=== PATIENT | female | born 1980 | race African-American/Black ===

== ENCOUNTER → 2016-10-24 | Outpatient (REF) ==
[~2016-10-24] MED LIST: ANTIVERT 25MG25 MG PO; CARAFATE 1GM1 G PO; CELEXA10 MG PO; CLEOCIN HCL300 MG PO; DOXYCYCLINE 10100 MG PO; FLEXERIL 1010 MG/TAB PO; FLEXERIL5 MG PO; LORTAB 5/500 501 TAB PO; MOBIC 7.5MG7.5 MG PO; MOTRIN 800800 MG/TAB PO; NAPROSYN500 MG PO; NO HOME MEDICATIONS; NORCO 325 MG-51 TAB PO; PHENERGAN W/CO120 M1 PO; PREDNISONE20 MG PO; PRENATAL VITAMI1 TA5 PO; PRIL40 PO; PRILOSEC 20MG20 MG PO; PROAIR HFA0.09 MG/AC IH; TYLENOL 500MG500 MG PO; VALIUM 2MG T2 MG/TAB PO; ZITHROMAX Z PA250 MG PO; [UNRECOGNIZED DRUG - REMARK]
== END ==
LOC: WSOH 10:23
DX: Z02.89 Encounter for other administrative examinations (principal)

== ENCOUNTER 2017-02-01 08:21 | Emergency (ER) | payer OTHER ==
[~2017-02-01] VITALS: Ht 180.3 cm; Wt 136.4 kg
[~2017-02-01 08:21] MED LIST changes: -DOXYCYCLINE 10100 MG PO
[2017-02-01 08:26] VITALS: BP 170/65; TEMP 98
[2017-02-01] MEDS ORDERED: PREDNISONE20 MG PO (10:38)
[2017-02-01 10:58] VITALS: PULSE 82
[2017-06-07] MEDS ORDERED: DOXYCYCLINE 10100 MG PO (14:06)
== END 2017-02-01 10:58 | disposition home or self-care (01) ==
LOC: COL.ER 08:21
DX: J20.9 Acute bronchitis, unspecified (principal); Z87.891 Personal history of nicotine dependence; F32.9 Major depressive disorder, single episode, unspecified
CPT/HCPCS: J7512

== ENCOUNTER 2018-01-30 11:06 | Emergency (ER) | payer OTHER ==
[~2018-01-30] VITALS: Ht 182.9 cm; Wt 147.7 kg
[~2018-01-30 11:06] MED LIST changes: +DOXYCYCLINE 10100 MG PO
[2018-01-30 11:16] VITALS: BP 149/94; PULSE 82; TEMP 98.7
== END 2018-01-30 11:52 | disposition left against medical advice (07) ==
LOC: COL.ER 11:06
DX: R03.0 Elevated blood-pressure reading, without diagnosis of hypertension (principal)

== ENCOUNTER 2018-02-20 07:51 | Emergency (ER) | payer OTHER ==
[~2018-02-20] VITALS: Ht 182.9 cm; Wt 154.7 kg
[2018-02-20] MEDS ORDERED: NORCO 325 MG-7.1 TAB PO (08:26)
[2018-02-20] MEDS ORDERED: MEDROL 4MG DOSPA4 MG PO (08:26)
[2018-02-20 08:51] VITALS: BP 161/99; PULSE 84; TEMP 98.3
[2018-02-21] MEDS ORDERED: FLEXERIL 1010 MG/TAB PO (11:18)
[2018-02-21] MEDS ORDERED: NORCO 325 MG-7.1 TAB PO (11:18)
== END 2018-02-20 08:58 | disposition home or self-care (01) ==
LOC: COL.ER 07:51
DX: M54.31 Sciatica, right side (principal); I10 Essential (primary) hypertension

== ENCOUNTER 2018-02-21 08:15 | Emergency (ER) | payer OTHER ==
[~2018-02-21] VITALS: Ht 182.9 cm; Wt 153.2 kg
[~2018-02-21 08:15] MED LIST changes: +MEDROL 4MG DOSPA4 MG PO; +NORCO 325 MG-7.1 TAB PO
[2018-02-21 08:24] VITALS: BP 185/116; PULSE 98; TEMP 98.2
[2018-02-21] MEDS ORDERED: NORCO 325 MG-7.1 TAB PO (11:18)
[2018-02-21] MEDS ORDERED: FLEXERIL 1010 MG/TAB PO (11:18)
== END 2018-02-21 11:35 | disposition home or self-care (01) ==
LOC: COL.ER 08:15
DX: M54.41 Lumbago with sciatica, right side (principal); Z79.52 Long term (current) use of systemic steroids
CPT/HCPCS: J1170; J1885

== ENCOUNTER → 2018-02-23 | Outpatient (CLI) | payer OTHER | LOC: COL.RAD 12:09 | DX: M51.17 Intervertebral disc disorders with radiculopathy, lumbosacral region (principal) ==

== ENCOUNTER → 2018-02-28 | Outpatient (CLI) | payer OTHER | LOC: MHCPAIN 09:09 | DX: G89.29 Other chronic pain (principal); M47.817 Spondylosis without myelopathy or radiculopathy, lumbosacral region; M54.16 Radiculopathy, lumbar region; M53.3 Sacrococcygeal disorders, not elsewhere classified | CPT/HCPCS: G0463 ==

== ENCOUNTER → 2018-03-01 | Outpatient (CLI) | payer OTHER | LOC: MHCPAIN 15:10 | DX: M47.817 Spondylosis without myelopathy or radiculopathy, lumbosacral region (principal); M51.27 Other intervertebral disc displacement, lumbosacral region | CPT/HCPCS: J1040; J2250; Q9967 ==

== ENCOUNTER → 2018-03-07 | Outpatient (CLI) | payer OTHER | LOC: MHCPAIN 11:18 | DX: G89.29 Other chronic pain (principal); M47.817 Spondylosis without myelopathy or radiculopathy, lumbosacral region; M54.16 Radiculopathy, lumbar region; M48.061 Spinal stenosis, lumbar region without neurogenic claudication | CPT/HCPCS: G0463 ==

== ENCOUNTER → 2018-03-14 | Outpatient (CLI) | payer OTHER | LOC: MHCPAIN 14:23 | DX: M47.817 Spondylosis without myelopathy or radiculopathy, lumbosacral region (principal); M51.27 Other intervertebral disc displacement, lumbosacral region; M48.07 Spinal stenosis, lumbosacral region | CPT/HCPCS: J1040; J2250; J3010; Q9967 ==

== ENCOUNTER 2018-04-12 16:15 | Outpatient (RCR) | payer OTHER | END 2018-04-13 08:00 | disposition home or self-care (01) | LOC: WSPT 16:15 | DX: M47.27 Other spondylosis with radiculopathy, lumbosacral region (principal); M53.3 Sacrococcygeal disorders, not elsewhere classified | CPT/HCPCS: G0283-GP ==

== ENCOUNTER → 2018-04-12 | Emergency (ER) | payer OTHER ==
[2018-04-12 13:05] VITALS: BP 175/97; PULSE 81; TEMP 98.9
== END ==
LOC: COL.ER 12:59
DX: R45.89 Other symptoms and signs involving emotional state (principal); Z79.891 Long term (current) use of opiate analgesic

== ENCOUNTER → 2018-05-25 | Outpatient (CLI) | payer OTHER | LOC: MHCPAIN 08:54 | DX: G89.29 Other chronic pain (principal); M47.817 Spondylosis without myelopathy or radiculopathy, lumbosacral region; M54.16 Radiculopathy, lumbar region; M96.1 Postlaminectomy syndrome, not elsewhere classified | CPT/HCPCS: G0463 ==

== ENCOUNTER → 2018-06-07 | Outpatient (CLI) | payer OTHER | LOC: COL.VAS 13:07 | DX: M79.89 Other specified soft tissue disorders (principal) ==

== ENCOUNTER → 2018-06-18 | Outpatient (CLI) | payer OTHER | LOC: COL.RAD 10:09 | DX: Z01.812 Encounter for preprocedural laboratory examination (principal); M51.17 Intervertebral disc disorders with radiculopathy, lumbosacral region; R60.0 Localized edema; M99.73 Connective tissue and disc stenosis of intervertebral foramina of lumbar region; M99.74 Connective tissue and disc stenosis of intervertebral foramina of sacral region | CPT/HCPCS: A9585 ==

== ENCOUNTER 2018-11-19 16:15 | Outpatient (RCR) | payer MEDICAID | END 2018-12-14 09:42 | disposition home or self-care (01) | LOC: WSPT 16:15 | DX: M54.17 Radiculopathy, lumbosacral region (principal) ==

== ENCOUNTER 2019-02-03 08:35 | Emergency (ER) | payer MEDICAID ==
[~2019-02-03] VITALS: Ht 182.9 cm; Wt 147.7 kg
[2019-02-03 08:40] VITALS: TEMP 97.6
[2019-02-03] MEDS ORDERED: NORCO 325 MG-51 TAB PO (08:44)
[2019-02-03] MEDS ORDERED: GLUCOPHAGE XR500 M1 PO (08:44)
[2019-02-03] MEDS ORDERED: CLEOCIN HCL300 MG PO (09:15)
[2019-02-03 09:40] LABS: BASO % 0.6 % (0.0-2.0); EOS # 0.1 (0.0-0.7); EOS % 1.2 % (0-4.0); GRAN # 4.3 (1.4-6.5); HEMOGLOBIN 13.3 g/dl (12.5-16.0); LYMPH # 1.9 (1.2-3.4); LYMPH % 28.4 % (20.0-51.0); MEAN CELL VOLUME 86 fl (80.0-100.0); MEAN CORPUSCULAR HEMOGLOBIN 27 pg (27.0-31.0); MEAN CORPUSCULAR HGB CONC 31 g/dl (33.0-37.0); MEAN PLATELET VOLUME 12.8 fl (7.4-10.4); MONO # 0.4 (0.1-0.6); MONO % 6.5 % (1.7-9.3); PLATELET COUNT 213 K/mm3 (130-400); RED BLOOD COUNT 4.98 M/mm3 (4.10-5.30); REDCELL DISTRIBUTION WIDTH-CV 14.8 % (11.5-14.5)
[2019-02-03 09:47] LABS: CALCIUM 9.4 mg/dL (8.4-10.2); CREATININE, serum 0.83 (0.52-1.25); POTASSIUM 4.4 mmol/L (3.4-5.0)
[2019-02-03 10:23] VITALS: BP 148/98; PULSE 70
== END 2019-02-03 10:28 | disposition home or self-care (01) ==
LOC: COL.ER 08:35
PROVIDERS: Physician Assistant
DX: K08.89 Other specified disorders of teeth and supporting structures (principal); M48.00 Spinal stenosis, site unspecified; Z87.891 Personal history of nicotine dependence; Z88.5 Allergy status to narcotic agent
CPT/HCPCS: J1885

== ENCOUNTER → 2019-02-08 | Outpatient (CLI) | payer MEDICAID ==
[~2019-02-08] MED LIST changes: +GLUCOPHAGE XR500 M1 PO
== END ==
LOC: SUN.DIA 01-29 14:21
DX: E11.40 Type 2 diabetes mellitus with diabetic neuropathy, unspecified (principal); I10 Essential (primary) hypertension; E66.9 Obesity, unspecified
CPT/HCPCS: G0108

== ENCOUNTER 2019-03-26 10:00 | Outpatient (RCR) | payer MEDICAID | END 2019-05-15 | disposition still patient (30) | LOC: WSPT | DX: M54.16 Radiculopathy, lumbar region (principal) ==

== ENCOUNTER → 2021-06-30 | Outpatient (CLI) | payer MEDICARE, MEDICAID | LOC: DIA.ED 05-26 14:05 → DIA.EDTELE 17:23 | DX: E11.65 Type 2 diabetes mellitus with hyperglycemia (principal); Z79.84 Long term (current) use of oral hypoglycemic drugs; I10 Essential (primary) hypertension | CPT/HCPCS: G0108 ==